=== PATIENT | female | born 1980 | race Caucasian/White ===

== ENCOUNTER 2016-09-13 12:01 | Day surgery (SDC) | payer MEDICARE, OTHER, MEDICAID ==
[~2016-09-13] VITALS: Ht 160 cm; Wt 72.7 kg
--- NOTE | ~2016-09-13 | OP ---
PATIENT NAME: LOGAN HENNING MEDICAL RECORD: [id number] :76 LOCATION:[facility] ADMISSION DATE: SURGEON: MARIBEL BALLARD DO DATE OF OPERATION: 09/13/2016 PROCEDURE: EGD. INDICATION: Reevaluation of gastric ulcers and upper endoscopy in April 2016. SCOPE: Olympus video gastroscope. MEDICATIONS: Propofol 150 mg IV per anesthesia. ESTIMATED BLOOD LOSS: None. FINDINGS: Informed consent was given. The patient was made comfortable with the above medication. After reaching an adequate level of sedation by slow IV push, the patient was placed on her left side. The endoscope was then advanced under direct visualization through the mouth to the second portion of the duodenum. The upper, middle, and distal thirds of the esophagus appeared normal. At the GE junction, there was some evidence of mild LA class A reflux induced esophagitis. Scope was advanced at the GE junction down into the stomach and retroflexed to view the cardia, where evidence of a past Mc fundoplication was evident. This is clear that this is no long intact and a hiatal hernia is present, which is moderate sized. The fundus and body of the stomach appeared normal. In the antrum, there was some granularity and small erosions. There were no ulcerations or other abnormalities visualized. These could also be healing of past ulcers that were visualized. Scope was advanced down into the duodenum where the bulb and second portion appeared normal. The scope was then withdrawn from the patient. The patient tolerated the procedure well and there were no complications. IMPRESSION: 1. Mild reflux-induced esophagitis, LA class A. 2. Hiatal hernia, which is moderate sized in the setting of a past Mc fundoplication which is no longer intact. 3. Gastric erosions and gastritis, which is improved from previous examination where multiple gastric ulcers were visualized. PLAN AND RECOMMENDATIONS: 1. Discharge home when recovery parameters are met. 2. Continue a GERD diet and reflux precautions. 3. Continue current medications including omeprazole 40 mg daily and Carafate as needed for symptoms. 4. Follow up in the GI clinic as needed. TRANSINT:[id number] Voice Confirmation ID: [id number] DOCUMENT ID: [id number] OPERATIVE REPORT [id number] LOGAN HENNING MARIBEL BALLARD DO CC: [id number] DICTATION DATE: 09/13/16 1610 [employer] TE[employer] LEAD: 09/14/[address] [facility] [place], [place] 09/13/16 [facility] [address] [place] [address]
[~2016-09-13 12:01] MED LIST: AZO PO; CALCIUM 600 +1 EAC3 PO; CARAFATE1 G PO; CLARITIN 10 MG10 MG PO; LINZESS PO; LIORESAL 10 MG10 MG PO; LOPRESSOR50 MG PO; MOBIC7.5 MG PO; MULTI-DAY VITAM1 TAB PO; NEXIUM40 MG PO; PRILOSEC20 MG PO; PROBIOTIC1 EAC1 PO; PROLIA INJ 660 MG/M1 IJ; TEGRETOL 200 M200 MG PO; VITAMIN C1000 MG PO; VITAMIN D3400 UNI1 PO; ZOFRAN4 MG PO
[2016-09-13 12:42] LABS: BASOPHILS 0.2 % (0-2); EOSINOPHILS 0.5 % (0-7); HEMATOCRIT 42.8 % (36.0-48.0); HEMOGLOBIN 14.1 g/dL (12-16); IMMATURE GRANULOCYTES 0.2 % (0-5); LYMPHOCYTES 29.7 % (15-50); MCH 32.1 pg (26.0-34.0); MCHC 32.9 g/dL (31.0-37.0); MCV 97.5 fL (80.0-100.0); MONOCYTES 4.8 % (2-11); NEUTROPHILS 64.6 % (40-80); PLATELET COUNT 180 10x3/uL (130-400); RBC 4.39 10x6/uL (4.00-5.40); RDW 12.4 % (11.5-14.5); WBC 4.1 10x3/uL (4.8-10.8)
[2016-09-13 12:58] LABS: CALC OSMOLALITY 285 mosm/kg (275-300); CALCIUM 8.7 mg/dL (8.5-10.1); CARBON DIOXIDE 29.8 mmol/L (21.0-32.0); CHLORIDE - SERUM 106 mmol/L (98-107); CREATININE - SERUM 0.5 mg/dL (0.6-1.3); GLUCOSE 94 mg/dL (74-106); SODIUM 143 mmol/L (136-145); UREA NITROGEN 16 mg/dL (7-18); eGFR NON AFRICAN AMERICAN > 90 mL/min (90-120)
[2016-09-13 14:11] VITALS: BP 127/63; Ht 160 cm; Wt 72.7 kg
--- NOTE | 2016-09-13 17:25 | NUR ---
1700 IV DC WITH CATHER TIP INTACT
== END 2016-09-13 17:17 | disposition home or self-care (01) ==
LOC: D.OPS 12:01
PROVIDERS: Anesthesiology
DX: K21.0 Gastro-esophageal reflux disease with esophagitis (principal); K44.9 Diaphragmatic hernia without obstruction or gangrene; K29.70 Gastritis, unspecified, without bleeding; G47.30 Sleep apnea, unspecified; M19.90 Unspecified osteoarthritis, unspecified site; Z01.812 Encounter for preprocedural laboratory examination

== ENCOUNTER 2017-07-01 09:20 | Day surgery (SDC) | payer MEDICARE, OTHER, MEDICAID ==
[~2017-07-01] VITALS: Ht 160 cm; Wt 68.2 kg
--- NOTE | ~2017-07-01 | OP ---
PATIENT NAME: LOGAN HENNING MEDICAL RECORD: [id number] :78 LOCATION:[facility] ADMISSION DATE: SURGEON: MARIBEL BALLARD DO DATE OF OPERATION: 07/01/2017 PROCEDURE: EGD with biopsies. INDICATIONS FOR PROCEDURE: Epigastric pain, GERD, nausea. SCOPE: Olympus video gastroscope. MEDICATIONS: Propofol 100 mg IV per anesthesia. ESTIMATED BLOOD LOSS: Minimal. COMPLICATIONS: None. FINDINGS: Informed consent was given. The patient was made comfortable with the above medication. After reaching an adequate level of sedation by slow IV push, the patient was placed on her left side. The endoscope was then advanced under direct visualization through the mouth to the second portion of the duodenum. The upper, middle, and lower thirds of the esophagus appeared normal. At the GE junction, there was some mild evidence of LA class B reflux-induced esophagitis without ulcers or erosions. The endoscope was advanced beyond the GE junction into the stomach and retroflexed to view the cardia, where a Mc fundoplication was evident. The fundus of the stomach appeared normal. The endoscope was advanced beyond the body and antrum into the prepyloric region. There was a single superficial erosion just proximal to the pyloric channel. There were no other ulcers or erosions. A few random gastric biopsies were taken to submit for histopathology and to rule out H. pylori. The endoscope was advanced beyond the pylorus into the duodenum where the bulb and second portion of the duodenum appeared normal. The endoscope was then withdrawn from the patient. The patient tolerated the procedure well and there were no complications. IMPRESSION: 1. Mild LA class B reflux-induced esophagitis. 2. History of a Mc fundoplication. 3. Single gastric erosion in the prepylorus of the stomach. PLAN AND RECOMMENDATIONS: 1. Discharge home when recovery parameters are met. 2. Follow up biopsy specimen results. 3. Continue current medications including omeprazole 40 mg daily, Carafate b.i.d., and ranitidine as needed for breakthrough symptoms. 4. If nausea becomes a more predominant symptom, consider a gastric emptying study. 5. If dysphagia becomes problem again, consider a barium esophagram. When discussed and the patient's symptoms, she states that things have improved since she was seen in clinic and is actually doing well right now. 6. Repeat EGD as needed for symptoms uncontrolled for further evaluation. TRANSINT:[id number] Voice Confirmation ID: [id number] DOCUMENT ID: [id number] OPERATIVE REPORT [id number] LOGAN HENNING NATHAN A DO at 0739 CC: [id number] DICTATION DATE: 07/01/17 1314 [employer]: 07/01/17 1339 [facility] 07/01/17 [place] [id number] [place] [id number]
[2017-07-01] MEDS ORDERED: LANOXIN125 MCG PO (11:00)
[2017-07-01] MEDS ORDERED: NEURONTIN 300300 MG PO (11:02)
[2017-07-01] MEDS ORDERED: ZYRTEC10 MG PO (11:03)
[2017-07-01] MEDS ORDERED: ULTRAM50 MG PO (11:05)
[2017-07-01 11:09] LABS: HEMATOCRIT 40.3 % (36.0-48.0); HEMOGLOBIN 13.4 g/dL (12-16); MCH 32.1 pg (26.0-34.0); MCHC 33.3 g/dL (31.0-37.0); MCV 96.6 fL (80.0-100.0); MEAN PLATELET VOLUME 8.9 fL (7.4-10.4); RBC 4.17 10x6/uL (4.00-5.40); RDW 12.5 % (11.5-14.5); WBC 4.7 10x3/uL (4.8-10.8)
[2017-07-01 11:13] VITALS: Ht 160 cm; Wt 68.2 kg
== END 2017-07-01 14:27 | disposition home or self-care (01) ==
LOC: D.OPS 09:20
PROVIDERS: Internal Medicine Gastroenterology
DX: R10.13 Epigastric pain (principal); K21.0 Gastro-esophageal reflux disease with esophagitis; R11.0 Nausea; K25.9 Gastric ulcer, unspecified as acute or chronic, without hemorrhage or perforation; Z01.812 Encounter for preprocedural laboratory examination

== ENCOUNTER → 2017-08-12 11:00 | Outpatient (CLI) | payer MEDICARE, OTHER, MEDICAID ==
[2017-07-01 11:13] VITALS: BMI 26.6
[~2017-08-12 11:00] MED LIST changes: +LANOXIN125 MCG PO; +NEURONTIN 300300 MG PO; +ULTRAM50 MG PO; +ZYRTEC10 MG PO
== END | disposition home or self-care (01) ==
LOC: D.NM 11:00
DX: R11.0 Nausea (principal); R10.84 Generalized abdominal pain

== ENCOUNTER → 2018-06-03 14:18 | Outpatient (CLI) | payer MEDICARE, OTHER, MEDICAID ==
[2017-07-01 11:13] VITALS: BMI 26.6
[2018-06-03 16:38] LABS: BASOPHILS 0 % (0-2); EOSINOPHILS 0.2 % (0-7); IMMATURE GRANULOCYTES 0.2 % (0-5); LYMPHOCYTES 29.3 % (15-50); MCH 32.3 pg (26.0-34.0); MCHC 33.3 g/dL (31.0-37.0); MCV 96.8 fL (80.0-100.0); MEAN PLATELET VOLUME 8.9 fL (7.4-10.4); MONOCYTES 6.2 % (2-11); NEUTROPHILS 64.1 % (40-80); PLATELET COUNT 173 10x3/uL (130-400); RBC 4.03 10x6/uL (4.00-5.40); WBC 4.7 10x3/uL (4.8-10.8)
[2018-06-03 17:10] LABS: ALKALINE PHOSPHATASE 104 U/L (46-116); ALT (SGPT) 45 U/L (10-68); BILIRUBIN - TOTAL 0.29 mg/dL (0.2-1.3); CARBON DIOXIDE 28.1 mmol/L (21.0-32.0); CHLORIDE - SERUM 101 mmol/L (98-107); PROTEIN - SERUM 6.7 g/dL (6.4-8.2); SODIUM 140 mmol/L (136-145)
[2018-06-03 17:19] LABS: ALBUMIN 3.6 g/dL (3.4-5.0); CALC OSMOLALITY 280 mosm/kg (275-300); CALCIUM 8.5 mg/dL (8.5-10.1); CREATININE - SERUM 0.4 mg/dL (0.6-1.3); GLUCOSE 86 mg/dL (74-106); UREA NITROGEN 20 mg/dL (7-18); eGFR NON AFRICAN AMERICAN > 90 mL/min (90-120)
[2018-06-03 18:04] LABS: ERYTHROCYTE SEDIMENTATION RATE 20 mm/hr (0-20)
== END | disposition home or self-care (01) ==
LOC: D.CT 14:18
PROVIDERS: Internal Medicine Gastroenterology
DX: R10.84 Generalized abdominal pain (principal); R11.0 Nausea; R19.7 Diarrhea, unspecified

== ENCOUNTER 2018-09-01 11:25 | Day surgery (SDC) | payer MEDICARE, OTHER ==
[~2018-09-01] VITALS: Ht 160 cm; Wt 72.7 kg
[2018-09-01 12:03] LABS: BASOPHILS 0 % (0-2); EOSINOPHILS 0.4 % (0-7); HEMATOCRIT 43.5 % (36.0-48.0); HEMOGLOBIN 14.9 g/dL (12-16); IMMATURE GRANULOCYTES 0.2 % (0-5); LYMPHOCYTES 18.7 % (15-50); MCHC 34.3 g/dL (31.0-37.0); MCV 96.2 fL (80.0-100.0); MEAN PLATELET VOLUME 9.1 fL (7.4-10.4); MONOCYTES 5.3 % (2-11); NEUTROPHILS 75.4 % (40-80); PLATELET COUNT 164 10x3/uL (130-400); RBC 4.52 10x6/uL (4.00-5.40); RDW 12.1 % (11.5-14.5); WBC 5.1 10x3/uL (4.8-10.8)
[2018-09-01 12:14] LABS: CALC OSMOLALITY 277 mosm/kg (275-300); CALCIUM 9.2 mg/dL (8.5-10.1); CARBON DIOXIDE 27.6 mmol/L (21.0-32.0); CHLORIDE - SERUM 99 mmol/L (98-107); CREATININE - SERUM 0.5 mg/dL (0.6-1.3); GLUCOSE 76 mg/dL (74-106); POTASSIUM - SERUM 4.2 mmol/L (3.5-5.1); SODIUM 140 mmol/L (136-145); UREA NITROGEN 13 mg/dL (7-18); eGFR NON AFRICAN AMERICAN > 90 mL/min (90-120)
[2018-09-01 12:55] VITALS: BP 109/70; Ht 160 cm; Wt 72.7 kg
--- NOTE | 2018-09-01 15:59 | NUR ---
1535 DR. BALLARD ROUNDS 1540 [place] DIET SERVED.
--- NOTE | 2018-09-03 18:24 | OP ---
PATIENT NAME: LOGAN HENNING MEDICAL RECORD: [id number] :76 LOCATION:[facility] ADMISSION DATE: SURGEON: MARIBEL BALLARD DO DATE OF OPERATION: 09/01/2018 PROCEDURE: Colonoscopy with biopsies. INDICATIONS FOR PROCEDURE: Change in bowel habits and diarrhea. SCOPE: Olympus video pediatric colonoscope. MEDICATIONS: Propofol 300 mg IV per anesthesia. WITHDRAWAL TIME: 11 minutes. ESTIMATED BLOOD LOSS: Minimal. COMPLICATIONS: None. FINDINGS: Informed consent was given. The patient was made comfortable with the above medication. After reaching an adequate level of sedation by slow IV push, the patient was placed on her left side. A digital rectal examination was performed and was normal. The endoscope was then advanced under direct visualization through the rectum to the cecum, confirmed by the presence of the appendiceal orifice and ileocecal valve. The endoscope was slowly withdrawn and mucosa was carefully examined. The prep quality was good. There were no polyps visualized on today's examination. There was evidence of mild diverticulosis involving the descending and sigmoid colon without evidence of diverticulitis. There was a prior intervention involving the rectum with some kenn present. Retroflexion was performed in the rectum with visualization of a normal appearing rectal wall. The endoscope was withdrawn from the patient. The patient tolerated the procedure well and there were no complications. IMPRESSIONS: 1. Mild diverticulosis of the descending and sigmoid colon. 2. Prior intervention in the rectum. 3. Otherwise, normal colonoscopy. Random biopsies were taken during the colonoscopy to submit for histopathology and to rule out the presence of microscopic colitis. PLAN AND RECOMMENDATIONS: 1. Discharge home when recovery parameters are met. 2. Follow up biopsy specimen results. 3. Continue current diet consisting of smaller more frequent meals regarding gastroparesis. 4. Supplement diet with 1 tablespoon of fiber daily to improve bowel habits. 5. Follow up biopsy specimens. 6. Follow up in GI clinic in 2-3 weeks. 7. Consider referral for gastric pacemaker evaluation. 8. Recall colonoscopy at age 48 for colorectal cancer screening. TRANSINT:[id number] Voice Confirmation ID: [id number] DOCUMENT ID: [id number] OPERATIVE REPORT [id number] LOGAN HENNING MARIBEL BALLADR DO at 0582 CC: [id number] DICTATION DATE: 09/01/18 7199 [employer]NER: 09/01/18 1636 [facility] 09/01/18 [facility] [address] [place] [address]
== END 2018-09-01 16:15 | disposition home or self-care (01) ==
LOC: D.OPS 11:25
PROVIDERS: Anesthesiology; ATTEND Internal Medicine Gastroenterology
DX: R19.4 Change in bowel habit (principal); R19.7 Diarrhea, unspecified

== ENCOUNTER → 2020-09-09 13:07 | Outpatient (CLI) | payer MEDICARE, OTHER ==
[2018-09-01 12:55] VITALS: BMI 28.4
== END | disposition home or self-care (01) ==
LOC: D.CT 13:00
PROVIDERS: ATTEND Internal Medicine Gastroenterology
DX: R63.4 Abnormal weight loss (principal); R10.13 Epigastric pain; R14.0 Abdominal distension (gaseous); R68.81 Early satiety; R19.4 Change in bowel habit